=== PATIENT | male | born 1950 | race Asian ===

== ENCOUNTER 2022-10-30 02:11 | Inpatient (IN) | payer BC ==
[~2022-10-30] VITALS: Ht 175.3 cm; Wt 65.8 kg
--- NOTE | 2022-10-30 02:11 | NUR ---
[facility]. FROM [facility] PER REPORT FROM XRAY PT HAVE R FEMORAL FRACTURE. C/O L HIP PAIN S/P FALL + HT, -KO, NO BLOOD THINNER USE. PT A/OX2/3. TOLERATING R/A WELL WITH NO RESP DISTRESS. SAFETY MEASURES IN PLACE. CONNECTED PT TO POX AND MONITOR.
--- NOTE | 2022-10-30 02:35 | NUR ---
FUR DRY CLEANER AT PT'S BEDSIDE
--- NOTE | 2022-10-30 02:47 | NUR ---
RAC #18G S/L BLOOD AND COVID ANTIGEN SWAB COLLECTED AND SENT TO LAB
[2022-10-30 02:55] LABS: BASOPHILS % (AUTO) 0.2 % (0.0-2.0); EOSINOPHILS % (AUTO) 0.4 % (0.0-6.0); HEMATOCRIT 28 % (39-51); HEMOGLOBIN 9.2 g/dL (13.5-17.5); LYMPHOCYTES # (AUTO) 0.4 K/uL (0.8-4.8); LYMPHOCYTES % (AUTO) 5.7 % (20.0-44.0); MEAN CORPUSCULAR HGB CONC 33 g/dl (31.0-36.0); MEAN CORPUSCULAR VOLUME 101 fL (80-96); MONOCYTES # (AUTO) 0.6 K/uL (0.1-1.30); MONOCYTES % (AUTO) 8.2 % (2.0-12.0); NEUTROPHILS % (AUTO) 85.5 % (43.0-81.0); PLATELET COUNT (AUTO) 181 K/uL (150-450); RED BLOOD CELL COUNT(AUTO) 2.78 MIL/uL (4.5-6.0)
--- NOTE | 2022-10-30 02:55 | NUR ---
PT TAKEN TO CT VIA LEY[facility]
[2022-10-30 03:11] LABS: CALCIUM, SERUM 8.6 mg/dL (8.5-10.1); POTASSIUM 3.2 mmol/L (3.5-5.1)
[2022-10-30 05:09] LABS: BASOPHILS % (MANUAL) 0 % (0.0-2.0); EOSINOPHILS % (MANUAL) 0 % (0-4); LYMPHOCYTES % (MANUAL) 7 % (16-48); MONOCYTES % (MANUAL) 9 % (0-11.0); NEUTROPHILS % (MANUAL) 84 (42-76)
--- NOTE | 2022-10-30 05:29 | NUR ---
EPIC PANEL PAGED
--- NOTE | 2022-10-30 05:55 | NUR ---
DR CASTILLO ON PHONE CALL WITH ROGELIO GILLILAND SUPERINTENDENT [employer]
[2022-10-30] MEDS ORDERED: Z GUARD REMEDY 4 OZ OINT TP PRN (06:30)
[2022-10-30] MEDS ORDERED: ACETAMINOPHEN 325 MG TABLET PO PRN (06:30)
[2022-10-30] MEDS: POTASSIUM CL. PREMIX PERIPHER. 50 ML IV SCH ×6 (06:30→16:59)
[2022-10-30] MEDS ORDERED: IV D5/0.45 NACL 1,000 ML IV PRN (06:30)
[2022-10-30] MEDS ORDERED: ONDANSETRON HCL/PF 4 MG/2 ML VIAL IVP PRN (06:30)
--- NOTE | 2022-10-30 07:15 | NUR ---
RECEIVED PT FROM JUANITO RN PT AWAKE FALLOW DORIAND RESPIRATION SPONT AND EASY
--- NOTE | 2022-10-30 08:03 | NUR ---
WATING FOR MS BED
--- NOTE | 2022-10-30 08:24 | NUR ---
Hand off Ciera RN TO ROOM 311-2 VIA KERRI AWAKE FALLOW COMMAND
--- NOTE | 2022-10-30 09:15 | NUR ---
TO ROOM 311-2 VIA GARNY STABLE VS AWAKE AND FALLOW COMMAND
[2022-10-30] MEDS ORDERED: POLY17PO4 PO (09:50)
[2022-10-30] MEDS ORDERED: FLUD0.1T PO (09:50)
[2022-10-30] MEDS ORDERED: CYAN-51 PO (09:50)
[2022-10-30] MEDS ORDERED: PARO30TA4 PO (09:50)
[2022-10-30] MEDS ORDERED: PRUC2TAB PO (09:50)
[2022-10-30] MEDS ORDERED: MIDO2.5T PO (09:50)
[2022-10-30] MEDS ORDERED: SENN-261 PO (09:50)
[2022-10-30] MEDS ORDERED: FERR325T23 PO (09:50)
[2022-10-30] MEDS ORDERED: ACET-868 PO (09:50)
[2022-10-30] MEDS ORDERED: CHOL400C8 PO (09:50)
[2022-10-30] MEDS ORDERED: DOCU-141 PO (09:50)
[2022-10-30] MEDS ORDERED: CARB1TAB21 PO ×2 (09:50)
[2022-10-30] MEDS ORDERED: ENTA200T30 PO (09:50)
[2022-10-30] MEDS ORDERED: BRIN8DRO2 EACHEYE (09:50)
[2022-10-30] MEDS ORDERED: BIMA2.5D5 EACHEYE (09:50)
[2022-10-30] MEDS ORDERED: BUPR-54 PO (09:50)
[2022-10-30] MEDS ORDERED: ATOR10TA PO (09:50)
[2022-10-30] MEDS ORDERED: ACET-2605 PO (09:50)
[2022-10-30] MEDS ORDERED: CARB-132 PO (09:50)
--- NOTE | 2022-10-30 11:00 | NUR ---
ms rn received a new admission from er.71 year old male from facility, awake, oriented x2-3,s/p fall w/ fractured right hip,w/ dr. reyes, orders made and carried out,repositioned for comfort,denies pain at this time,will monitor patient.
[2022-10-30 11:56] VITALS: BP 123/66
--- NOTE | 2022-10-30 15:30 | NUR ---
ms rn due meds given, at bedside, updated w/ plan of care.
[2022-10-30 16:03] VITALS: BP 128/70
--- NOTE | 2022-10-30 16:45 | NUR ---
ms rn was seen by armand steven, examined patient, will call if family is willing for surgery.
--- NOTE | 2022-10-30 17:29 | NUR ---
ms rn on bed, no distress noted, patient is still confuse at times.
--- NOTE | 2022-10-30 19:47 | NUR ---
MS RN OPENING NOTE PATIENT SLEEPING IN BED, EASILY AWAKENED, PT ALERT/ORIENTED X 2, PERIODS OF CONFUSION PER DAYSHIFT RN. PATIENT STABLE ON RA, NO S/S OF DISTRESS OR SOB NOTED, BREATHING EVEN AND UNLABORED. IV ACCESS ON RAC #18G INTACT AND INFUSING D5 1/2 NS @ 75 ML/HR. PATIENT TO BE NPO POST MIDNIGHT FOR POSSIBLE SURGERY, AWAITING CLEARANCE AND SURGERY SCHEDULE. SAFETY MEASURES IN PLACE: CALL LIGHT WITHIN REACH, SIDE RAILS UP X 3, BED LOCKED IN LOWEST POSITION, HOB ELEVATED, BED ALARM ON. WILL CONTINUE TO MONITOR PATIENT Addendum: 10/30/22 at 1955 by SAMMY ROUSE RN PER DAYSHIFT RN, WILL BE HERE TOMORROW TO SIGN CONSENT FORMS
[2022-10-30 20:00] VITALS: BP 148/91
--- NOTE | 2022-10-30 20:35 | NUR ---
MS RN NOTE CALLED PATIENT'S HIEU Romeo (PHONE # [phone]) FOR CONSENT FOR RIGHT HIP ORIF WITH IM NAIL, ANESTHESIA AND BLOOD TRANSFUSION. HIEU ROMEO CONSENTED FOR SURGERY, ANESTHESIA AND BLOOD TRANSFUSION, VERIFIED BY RJ FRANCO. PATIENT TO HAVE SURGERY IN AM. CONSENTS PLACED IN CHART
[2022-10-31] MEDS: IV D5/0.45 NACL 1,000 ML IV PRN ×2 (05:17→18:28)
--- NOTE | 2022-10-31 06:19 | NUR ---
MS RN CLOSING NOTE PATIENT SLEEPING IN BED, PATIENT ALERT/ORIENTED X 1-2 WITH FORGETFULNESS AND CONFUSION. PATIENT STABLE ON RA, NO S/S OF DISTRESS OR SOB NOTED, BREATHING EVEN AND UNLABORED. IV ACCESS ON LAC #18G INTACT AND INFUSING D5 1/2 NS @ 75 ML/HR. PATIENT SLEPT WELL THROUGH THE NIGHT, APPEARED COMFORTABLE. PATIENT INCONTINENT WITH 2 BOWEL MOVEMENTS, PT HAD CONDOM CATH BUT KEPT REMOVING IT SO IT WASN'T REPLACED, URINE ORANGE IN COLOR. PATIENT KEPT NPO, HAVING RIGHT HIP ORIF WITH IM NAIL THIS AM. SAFETY MEASURES IN PLACE: CALL LIGHT WITHIN REACH, SIDE RAILS UP X 3, BED LOCKED IN LOWEST POSITION, HOB ELEVATED, BED ALARM ON. WILL ENDORSE TO DAYSHIFT RN FOR CONTINUITY OF CARE
[2022-10-31 06:33] LABS: BASOPHILS % (AUTO) 0.1 % (0.0-2.0); HEMATOCRIT 25 % (39-51); HEMOGLOBIN 8.1 g/dL (13.5-17.5); LYMPHOCYTES # (AUTO) 0.4 K/uL (0.8-4.8); LYMPHOCYTES % (AUTO) 5.1 % (20.0-44.0); MEAN CORPUSCULAR HGB CONC 32 g/dl (31.0-36.0); MEAN CORPUSCULAR VOLUME 101 fL (80-96); MONOCYTES # (AUTO) 0.8 K/uL (0.1-1.30); MONOCYTES % (AUTO) 10.7 % (2.0-12.0); NEUTROPHILS # (AUTO) 6.4 K/uL (1.8-8.9); NEUTROPHILS % (AUTO) 84.1 % (43.0-81.0); PLATELET COUNT (AUTO) 153 K/uL (150-450); RED BLOOD CELL COUNT(AUTO) 2.46 MIL/uL (4.5-6.0); WHITE BLOOD COUNT (AUTO) 7.6 K/uL (4.3-11.0)
[2022-10-31 06:43] LABS: CALCIUM, SERUM 8.4 mg/dL (8.5-10.1); CREATININE 0.7 mg/dL (0.6-1.3); MAGNESIUM 2.5 mg/dL (1.8-2.4); PHOSPHORUS 2.7 mg/dL (2.5-4.9); POTASSIUM 3.3 mmol/L (3.5-5.1)
--- NOTE | 2022-10-31 07:10 | NUR ---
ms rn received on bed, awake, confuse,not in any form of distress, on room air w/ adequate saturation, patient npo at this time, for surgery of right hip, will monitor patient.
[2022-10-31 08:00] VITALS: BP 141/74
[2022-10-31] MEDS: POTASSIUM CL. PREMIX PERIPHER. 50 ML IV SCH ×2 (09:24→15:07)
[2022-10-31] MEDS: MORPHINE SULFATE INJ 2 MG/ML DISP.SYRIN IV PRN ×2 (09:26→22:09)
--- NOTE | 2022-10-31 09:39 | NUR ---
ms rn went down for hip surgery,all needs attended.
[2022-10-31] MEDS ORDERED: BUPIVACAINE 0.25% 75 MG/30 ML VIAL ONE ×2 (10:14→10:31)
[2022-10-31] MEDS ORDERED: ALBUMIN 5% 250 ML IV ONE (10:30)
[2022-10-31] MEDS ORDERED: CALCIUM CHLORIDE 1,000 MG/10 ML DISP.SYRIN ONE (11:09)
[2022-10-31] MEDS ORDERED: TRANEXAMIC ACID 1,000 MG/10 ML VIAL ONE (11:11)
[2022-10-31] MEDS ORDERED: LIDOCAINE 1% INJ 50 ML MDV IJ ONE (12:12)
[2022-10-31] MEDS ORDERED: MEPERIDINE25 MG SYR 25 MG/ML VIAL ONE (12:47)
[2022-10-31 13:20] LABS: HEMOGLOBIN 8.6 g/dL (13.5-17.5)
[2022-10-31] MEDS ORDERED: ACETAMINOPHEN 325 MG TABLET PO PRN (14:00)
[2022-10-31] MEDS ORDERED: DOCUSATE SODIUM 100 MG CAPSULE PO PRN (14:00)
[2022-10-31] MEDS ORDERED: MORPHINE SULFATE INJ 4 MG/ML DISP.SYRIN IV PRN (14:00)
[2022-10-31] MEDS ORDERED: BISACODYL SUPP (10 MG) 10 MG/SUPP.RECT SUPP.RECT RC PRN (14:00)
[2022-10-31] MEDS ORDERED: HYDROCODONE/APAP 5/325MG TABLET PO PRN ×2 (14:00)
[2022-10-31] MEDS ORDERED: DOCUSATE SODIUM 250 MG CAPSULE PO PRN (14:00)
[2022-10-31] MEDS ORDERED: SENNOSIDES 8.6 MG TABLET PO PRN ×2 (14:00)
--- NOTE | 2022-10-31 15:00 | NUR ---
ms rn patient came back from surgery, awake, still confused,not in any form of distress, respirations even and unlabored,no sob noted w/ adequate saturation. surgical site w/ dressing dry and intact.repositioned for comfort.
[2022-10-31] MEDS: ENOXAPARIN SODIUM 40 MG/0.4 ML DISP.SYRIN SQ SCH (15:13)
[2022-10-31 16:00] VITALS: BP 130/100
--- NOTE | 2022-10-31 17:53 | NUR ---
ms rn on bed, no distress noted,all needs attended.
[2022-10-31] MEDS: ANCEF 1 GM/50 ML D5W IV SCH ×2 (18:28)
--- NOTE | 2022-10-31 19:25 | NUR ---
MS RN OPENING NOTE PATIENT IS SLEEPING IN BED, EASILY BEING AROUSED. HE IS CONFUSED, AO X 1 ONLY. PT IS ON RA, TOLERATED WELL. NO S/S OF DISTRESS OR SOB. PT HAS IV ACCESS AT HIS R HAND, #20G, RUNNING D5 1/2NS @ 75 ML/HR. IV SITE IS PATENT AND INTACT.PT HAD SURGERY TODAY, DRESSING IS D/I/C. NO COMPLAIN OF HAVING PAIN AT THIS MOMENT. SAFETY MEASURES ARE IN PLACED: BED IN LOWEST AND LOCKED POSITION; SIDE RAILS UP X 2; CALL LIGHT AND TABLE ARE WITHIN REACH; BED ALARM IS SET. WILL CONTINUE MONITORING THE PT AND PROVIDE THE CARE PT NEEDS.
[2022-10-31 20:00] VITALS: BP 107/53
--- NOTE | 2022-10-31 22:09 | NUR ---
MS RN NOTE CHANGING THE PT'S DIAPER WITH RESOURCE SPECIALIST. PT SHOWING FACIAL GRIMACING AND MOANING. PRN IV MEDICATION, MORPHINE 4 MG, GIVEN PER MD ORDER.
[2022-11-01] MEDS: ANCEF 1 GM/50 ML D5W IV SCH ×2 (02:01)
[2022-11-01 05:52] LABS: HEMOGLOBIN 7.7 g/dL (13.5-17.5)
[2022-11-01] MEDS: IV D5/0.45 NACL 1,000 ML IV PRN ×2 (06:03→18:20)
--- NOTE | 2022-11-01 06:40 | NUR ---
MS RN CLOSING NOTE PATIENT IS SLEEPING IN BED, EASILY BEING AROUSED. HE IS ALERT AND ORIENTED, AO X 2. PT DID NOT REMEMBER THAT HE HAD VISITOR, HIS BROTHER, LAST NIGHT. HE DID NOT KNOW HE WAS PULLING THE IV OUT OF HIM. HE DID NOT REMEMBER HIS RIGHT HAND CAUSED HIS LEFT FA SKIN TEAR. HE IS MORE ALERT THAN YESTERDAY. EXPLAINED THE REASON OF PUTTING THE SOFT WRISTS RESTRAIN ON HIM, PT VERBALIZED UNDERSTANDING. PT IS ON RA, TOLERATED WELL. NO S/S OF DISTRESS OR SOB. PT HAS IV ACCESS AT HIS R HAND, #20G, RUNNING D5 1/2NS @ 75 ML/HR. IV SITE IS PATENT AND INTACT. PT DENIES OF HAVING PAIN AT THIS MOMENT. SAFETY MEASURES ARE IN PLACED: BED IN LOWEST AND LOCKED POSITION; SIDE RAILS UP X 2; CALL LIGHT AND TABLE ARE WITHIN REACH; BED ALARM IS SET. WILL ENDORSE NEXT SHIFT NURSE FOR CONTINUING PT CARE.
--- NOTE | 2022-11-01 07:29 | NUR ---
MS RN OPENING NOTE RECEIVED PT AWAKE AND RESTING IN BED. PT IS A/O X1, CONFUSED AND FORGETFUL. REORIENTED PT NEEDED. PT ON ROOM AIR, TOLERATING WELL. NO SOB NOTED. NOT IN ANY SIGN OF RESPIRATORY DISTRESS. IV ACCESS ON RIGHT HAND G#22 INTACT AND PATENT WITH D5 1/2 NS INFUSING AT 75ML/HR. SAFETY MEASURES IN PLACE: BED IN LOWEST AND LOCKED POSITION, SIDE RAILS UPX2, BED ALARM ON, AND CALL LIGHT WITHIN REACH. WILL CONTINUE PT WITH PLAN OF CARE.
[2022-11-01 08:00] VITALS: BP 144/78
[2022-11-01] MEDS ORDERED: POTASSIUM CHLORIDE 20 MEQ TAB.PRT.SR PO ONE (09:00)
[2022-11-01] MEDS ORDERED: DOCUSATE SODIUM 100 MG CAPSULE PO PRN (09:30)
[2022-11-01] MEDS ORDERED: MIDODRINE HCL (5MG) 5 MG TABLET PO PRN (09:30)
[2022-11-01] MEDS: CARBIDOPA/LEVODOPA 25/100 MG 1 UDTAB PO SCH ×3 (12:20→21:41)
[2022-11-01] MEDS: ENTACAPONE 200 MG TABLET PO SCH ×3 (12:20→21:41)
[2022-11-01] MEDS ORDERED: ENTACAPONE PO SCH (13:00)
[2022-11-01] MEDS ORDERED: CARBIDOPA PO SCH (13:00)
[2022-11-01] MEDS ORDERED: [UNRECOGNIZED DRUG - OTHER] PO SCH (13:00)
[2022-11-01] MEDS ORDERED: LEVODOPA PO SCH (13:00)
[2022-11-01] MEDS: ENOXAPARIN SODIUM 40 MG/0.4 ML DISP.SYRIN SQ SCH (13:07)
[2022-11-01 16:05] VITALS: BP 147/85
[2022-11-01] MEDS: FLUDROCORTISONE 0.1 MG TABLET PO SCH (17:17)
[2022-11-01] MEDS: SENNOSIDES 8.6 MG TABLET PO SCH (17:17)
[2022-11-01] MEDS: POLYETHYLENE GLYCOL 3350 17 GM POWD.PACK PO SCH (17:17)
--- NOTE | 2022-11-01 18:40 | NUR ---
MS RN CLOSING NOTE PT AWAKE AND RESTING IN BED. PT IS A/O X1, CONFUSED AND FORGETFUL. REORIENTED PT NEEDED. PT ON ROOM AIR, TOLERATING WELL. NO SOB NOTED. NOT IN ANY SIGN OF RESPIRATORY DISTRESS. IV ACCESS ON RIGHT HAND G#22 INTACT AND PATENT WITH D5 1/2 NS INFUSING AT 75ML/HR. ALL NEEDS ATTENDED. KEPT CLEAN AND COMFORTABLE AT ALL TIMES. TURNED AND REPOSITIONED Q2HRS AND NEEDED. SAFETY MEASURES IN PLACE: BED IN LOWEST AND LOCKED POSITION, SIDE RAILS UPX2, BED ALARM ON, AND CALL LIGHT WITHIN REACH. WILL ENDORSE TO NURSE LICENSED PRACTICAL NURSE FOR ROMA.
--- NOTE | 2022-11-01 19:00 | NUR ---
MS RN OPENING NOTE PATIENT IS SITTING IN BED, WITH HIS AND HIS BROTHER AT THE BEDSIDE. HE IS CONFUSED, AO X 1 ONLY. PT THOUGHT HE IS ON THE AIRPLANE. ACCORDING TO HIS , THIS IS HIS BASELINE. PT IS ON RA, TOLERATED WELL. NO S/S OF DISTRESS OR SOB. PT HAS IV ACCESS AT HIS R HAND, #22G, RUNNING D5 1/2NS @ 75 ML/HR. IV SITE IS PATENT AND INTACT. PT IS ON SOFT WRISTS RESTRAINT BILATERAL, EXPLAINED AND EDUCATED THE PT AND HIS FAMILY MEMBERS RELATED TO THE RESTRAINT. PT DOES NOT COMPLAIN OF HAVING PAIN AT THIS MOMENT. SAFETY MEASURES ARE IN PLACED: BED IN LOWEST AND LOCKED POSITION; SIDE RAILS UP X 2; CALL LIGHT AND TABLE ARE WITHIN REACH; BED ALARM IS SET. WILL CONTINUE MONITORING THE PT AND PROVIDE THE CARE PT NEEDS.
--- NOTE | 2022-11-01 19:13 | NUR ---
MS RN CLOSING NOTE PT AWAKE AND RESTING IN BED. PT IS A/O X1, CONFUSED AND FORGETFUL. REORIENTED PT NEEDED. PT ON ROOM AIR, TOLERATING WELL. NO SOB NOTED. NOT IN ANY SIGN OF RESPIRATORY DISTRESS. IV ACCESS ON RIGHT HAND G#22 INTACT AND PATENT WITH D5 1/2 NS INFUSING AT 75ML/HR. ALL NEEDS ATTENDED. KEPT CLEAN AND COMFORTABLE AT ALL TIMES. TURNED AND REPOSITIONED Q2HRS AND NEEDED. SAFETY MEASURES IN PLACE: BED IN LOWEST AND LOCKED POSITION, SIDE RAILS UPX2, BED ALARM ON, AND CALL LIGHT WITHIN REACH. WILL ENDORSE TO SECURITIES SALES ASSOCIATE NURSE FOR ROMA.
[2022-11-01 20:00] VITALS: BP 132/82
[2022-11-01] MEDS: LATANOPROST EYE DROP 0.005% 2.5 ML BOTTLE OP SCH (21:41)
[2022-11-02] MEDS: IV D5/0.45 NACL 1,000 ML IV PRN ×2 (04:30→19:18)
--- NOTE | 2022-11-02 06:55 | NUR ---
MS RN CLOSING NOTE PATIENT IS SLEEPING IN BED, EASILY BEING AROUSED. HE IS ALERT AND ORIENTED, AO X 2. PT IS ON RA, TOLERATED WELL. NO S/S OF DISTRESS OR SOB. PT HAS IV ACCESS AT HIS R HAND, #22G, RUNNING D5 1/2NS @ 75 ML/HR. IV SITE IS PATENT AND INTACT. PT DENIES OF HAVING PAIN AT THIS MOMENT. SAFETY MEASURES ARE IN PLACED: BED IN LOWEST AND LOCKED POSITION; SIDE RAILS UP X 2; CALL LIGHT AND TABLE ARE WITHIN REACH; BED ALARM IS SET. WILL ENDORSE NEXT SHIFT NURSE FOR CONTINUING PT CARE.
--- NOTE | 2022-11-02 08:04 | NUR ---
MS RJ OPENING NOTE Patient in bed, awake. A/O x 1, confused at times. On room air, no SOB or s/s of distress noted. IV access on Right hand #22 infusing D5 1/2 NS @ 75 ml/hr. Bilateral soft wrist restraints noted. Surgical dressing on Left hip c/d/i. Safety precautions in place: bed in low, locked position; siderails up x 2; call light within reach. Will continue to monitor. Addendum: 11/03/22 at 0820 by ANJU LOWE RN CORRECTION: Surgical dressing on Right hip
[2022-11-02 08:32] VITALS: BP 141/76
[2022-11-02 08:37] LABS: BASOPHILS % (AUTO) 0.1 % (0.0-2.0); EOSINOPHILS % (AUTO) 0.1 % (0.0-6.0); HEMATOCRIT 22 % (39-51); HEMOGLOBIN 7.3 g/dL (13.5-17.5); LYMPHOCYTES # (AUTO) 0.2 K/uL (0.8-4.8); MEAN CORPUSCULAR HGB CONC 33 g/dl (31.0-36.0); MEAN CORPUSCULAR VOLUME 99 fL (80-96); MONOCYTES # (AUTO) 0.5 K/uL (0.1-1.30); MONOCYTES % (AUTO) 7.5 % (2.0-12.0); NEUTROPHILS # (AUTO) 5.6 K/uL (1.8-8.9); NEUTROPHILS % (AUTO) 89.3 % (43.0-81.0); PLATELET COUNT (AUTO) 117 K/uL (150-450); RED BLOOD CELL COUNT(AUTO) 2.24 MIL/uL (4.5-6.0); WHITE BLOOD COUNT (AUTO) 6.2 K/uL (4.3-11.0)
[2022-11-02 08:56] LABS: CREATININE 0.6 mg/dL (0.6-1.3); POTASSIUM 3.5 mmol/L (3.5-5.1)
[2022-11-02] MEDS ORDERED: Medication Not On Formulary EA (Prucalopride Succinate (Motegrity) 2 MG) PO SCH (09:00)
[2022-11-02] MEDS: ENTACAPONE 200 MG TABLET PO SCH ×4 (09:14→21:03)
[2022-11-02] MEDS: POLYETHYLENE GLYCOL 3350 17 GM POWD.PACK PO SCH ×2 (09:14→17:06)
[2022-11-02] MEDS: ATORVASTATIN 10 MG TABLET PO SCH (09:14)
[2022-11-02] MEDS: FERROUS SULFATE (325 MG) 325 MG/TAB TABLET PO SCH (09:14)
[2022-11-02] MEDS: CARBIDOPA/LEVODOPA 25/100 MG 1 UDTAB PO SCH ×4 (09:14→21:03)
[2022-11-02] MEDS: PAROXETINE HCL 10 MG TABLET PO SCH (09:15)
[2022-11-02] MEDS: SENNOSIDES 8.6 MG TABLET PO SCH ×2 (09:15→17:06)
[2022-11-02] MEDS: FLUDROCORTISONE 0.1 MG TABLET PO SCH ×2 (09:16→17:05)
--- NOTE | 2022-11-02 09:58 | NUR ---
WOUND CARE CONSULT: PT PRESENTS WITH MULTIPLE AREAS OF SKIN DISCOLORATION INCLUDING FACE, BOTH HIPS AND RT INNER THIGH, SURGICAL DRESSINGS (DRY AND INTACT) TO RT HIP/THIGH AREAS. STERI STRIP FELL OF OF LEFT FACE REVEALING DRY ABRASION. SACRAL AREA IS BONY. RECOMMENDATIONS MADE FOR SKIN PROTECTION. DISCUSSED WITH NURSING STAFF. MD IN AGREEMENT WITH PLAN OF CARE.
--- NOTE | 2022-11-02 10:00 | NUR ---
RN NOTE Condom catheter attached.
[2022-11-02] MEDS: ENOXAPARIN SODIUM 40 MG/0.4 ML DISP.SYRIN SQ SCH (14:00)
--- NOTE | 2022-11-02 14:06 | NUR ---
RN NOTE Lovenox scheduled for 1400 held, Hgb is trending down, 7.3 today.
[2022-11-02] MEDS ORDERED: ENOX40DI SQ (14:48)
[2022-11-02 16:10] VITALS: BP 147/88
--- NOTE | 2022-11-02 18:59 | NUR ---
MS RN CLOSING NOTE Patient in bed, resting. A/O x 1-2, confused at times. Stable on room air, no SOB or s/s of distress noted. IV access on Right hand #22 infusing D5 1/2 NS @ 75 ml/hr. Bilateral soft wrist restraints noted. Surgical dressing on Left hip changed per MD order. All needs attended to. Due meds given. Turned and repositioned q2h as tolerated. Safety precautions in place: bed in low, locked position; siderails up x 2; call light within reach. Will endorse to machinist 2nd shift nurse for ROMA.
--- NOTE | 2022-11-02 19:33 | NUR ---
MS RN OPENING NOTE RECEIVED PT AWAKE IN BED. A/O X1 AND CONFUSED. PT STABLE ON ROOM AIR. NO SOB OR S/S OF RESPIRATORY DISTRESS. BREATHING EVEN AND UNLABORED. WITH BILATERAL SOFT WRIST RESTRAINTS, CIRCULATION CHECKED AND WNL. R HIP DRESSING C/D/I. IV ACCESS R HAND 22G, INTACT AND PATENT, RUNNING D5 1/2 NS @ 75 ML/HR. SAFETY PRECAUTIONS IN PLACE. BED IN LOWEST LOCKED POSITION, HOB ELEVATED, SIDE RAILS UP X3, AND CALL LIGHT AND TABLE WITHIN REACH. ALL NEEDS MET AT THIS TIME.
[2022-11-02 20:00] VITALS: BP 148/88
[2022-11-02] MEDS: LATANOPROST EYE DROP 0.005% 2.5 ML BOTTLE OP SCH (21:03)
--- NOTE | 2022-11-03 04:36 | NUR ---
RN NOTE IV ACCESS DISLODGED FROM R HAND. ATTEMPTED MULTIPLE PIV INSERTION WITH NO SUCCESS. PT REQUESTED THAT WE STOP FOR NOW. CHARGE NURSE EDYTA WALDROP.
--- NOTE | 2022-11-03 06:44 | NUR ---
MS RN CLOSING NOTE PT AWAKE IN BED. A/O X1 AND CONFUSED. PT STABLE ON ROOM AIR. NO SOB OR S/S OF RESPIRATORY DISTRESS. BREATHING EVEN AND UNLABORED. WITH BILATERAL SOFT WRIST RESTRAINTS, CIRCULATION CHECKED AND WNL. R HIP DRESSING C/D/I. NO IV ACCESS AT THIS TIME. SAFETY PRECAUTIONS IN PLACE AT ALL TIMES. BED IN LOWEST LOCKED POSITION, HOB ELEVATED, SIDE RAILS UP X3, AND CALL LIGHT AND TABLE WITHIN REACH. ALL NEEDS MET AT THIS TIME AND WILL ENDORSE TO ONCOMING NURSE FOR ROMA.
[2022-11-03 07:00] VITALS: BP 149/86
[2022-11-03 07:52] LABS: BASOPHILS % (AUTO) 0.1 % (0.0-2.0); EOSINOPHILS % (AUTO) 0.1 % (0.0-6.0); HEMATOCRIT 23 % (39-51); HEMOGLOBIN 7.7 g/dL (13.5-17.5); LYMPHOCYTES # (AUTO) 0.2 K/uL (0.8-4.8); LYMPHOCYTES % (AUTO) 3.9 % (20.0-44.0); MEAN CORPUSCULAR HGB CONC 34 g/dl (31.0-36.0); MEAN CORPUSCULAR VOLUME 97 fL (80-96); MONOCYTES # (AUTO) 0.4 K/uL (0.1-1.30); MONOCYTES % (AUTO) 7.9 % (2.0-12.0); NEUTROPHILS # (AUTO) 4.6 K/uL (1.8-8.9); PLATELET COUNT (AUTO) 144 K/uL (150-450); RED BLOOD CELL COUNT(AUTO) 2.37 MIL/uL (4.5-6.0); WHITE BLOOD COUNT (AUTO) 5.2 K/uL (4.3-11.0)
[2022-11-03 08:10] LABS: CALCIUM, SERUM 8.2 mg/dL (8.5-10.1); CREATININE 0.5 mg/dL (0.6-1.3); POTASSIUM 3.8 mmol/L (3.5-5.1)
--- NOTE | 2022-11-03 08:18 | NUR ---
MS RN OPENING NOTE Patient in bed, awake. A/O x 1, confused. On room air, no SOB or s/s of distress noted. No IV access at this time, per night stocker patient puled out IV. Bilateral soft wrist restraints noted. Surgical dressing on Left hip c/d/i. Condom catheter in place draining to an orange colored urine. Safety precautions in place: bed in low, locked position; siderails up x 2; call light within reach. Will continue to monitor. Addendum: 11/03/22 at 0820 by ANJU LOWE RN CORRECTION: Surgical dressing on Right hip
[2022-11-03] MEDS: POLYETHYLENE GLYCOL 3350 17 GM POWD.PACK PO SCH ×2 (09:02→16:36)
[2022-11-03] MEDS: PAROXETINE HCL 10 MG TABLET PO SCH (09:02)
[2022-11-03] MEDS: CARBIDOPA/LEVODOPA 25/100 MG 1 UDTAB PO SCH ×3 (09:02→16:42)
[2022-11-03] MEDS: ENTACAPONE 200 MG TABLET PO SCH ×3 (09:02→16:42)
[2022-11-03] MEDS: SENNOSIDES 8.6 MG TABLET PO SCH ×2 (09:03→16:36)
[2022-11-03] MEDS: ATORVASTATIN 10 MG TABLET PO SCH (09:03)
[2022-11-03] MEDS: FERROUS SULFATE (325 MG) 325 MG/TAB TABLET PO SCH (09:03)
[2022-11-03] MEDS: FLUDROCORTISONE 0.1 MG TABLET PO SCH ×2 (09:03→16:42)
[2022-11-03] MEDS: ENOXAPARIN SODIUM 40 MG/0.4 ML DISP.SYRIN SQ SCH (14:07)
[2022-11-03 16:00] VITALS: BP 152/92
--- NOTE | 2022-11-03 19:38 | NUR ---
DISCHARGE NOTE Received order for discharge. Patient is A/O x 1= Addendum: 11/03/22 at 1940 by ANJU LOWE RN DISCHARGE NOTE Received order for discharge. Patient is A/O x 1-2, confused. Stable on room air, no SOB or s/s of distress noted. Report given to RJ Herman of [facility]. All belongings accounted for. Photos not taken, patient started getting agitated. Exitcare folder given to EMT. Patient left in stable condition via ambulance with 2 minister assistant present.
== END 2022-11-03 18:43 | DRG 480 ==
LOC: ER 02:13 → MED 08:25
PROVIDERS: ADMIT Internal Medicine; ATTEND Internal Medicine
PROC: 0QS606Z Reposition Right Upper Femur with Intramedullary Internal Fixation Device, Open Approach (ICD-10-PCS; principal; 2022-10-31)
PROC: 30233N1 Transfusion of Nonautologous Red Blood Cells into Peripheral Vein, Percutaneous Approach (ICD-10-PCS; 2022-10-31)
DX: S72.141A Displaced intertrochanteric fracture of right femur, initial encounter for closed fracture (principal); G93.41 Metabolic encephalopathy; N17.0 Acute kidney failure with tubular necrosis; D69.6 Thrombocytopenia, unspecified; Z20.822 Contact with and (suspected) exposure to COVID-19; G20 Parkinson's disease; Z66 Do not resuscitate; W05.0XXA Fall from non-moving wheelchair, initial encounter; Z51.5 Encounter for palliative care; Y92.129 Unspecified place in nursing home as the place of occurrence of the external cause; N40.0 Benign prostatic hyperplasia without lower urinary tract symptoms; D64.9 Anemia, unspecified; E78.5 Hyperlipidemia, unspecified; E87.6 Hypokalemia; I10 Essential (primary) hypertension; H40.059 Ocular hypertension, unspecified eye; Z88.1 Allergy status to other antibiotic agents; Z99.3 Dependence on wheelchair
CPT/HCPCS: 36415; 70450-TC; 71045-TC; 72125-TC; 73501; 73502; 73552; 80048-TC; 83735-TC; 84100-TC; 85025-TC; 85027-TC; 85730-TC; 86850-TC; 87081-TC; 93307-TC; 97112-TC; 97116-TC; 97530-TC; A4223; A4349; A6209; A6403; C1713; C9803; G0378; J0171; J0690; J1100; J1650; J2175; J2270; J2370; J2405; J2704; J2765; J3480; J3490; J7030; J7050; J7060; P9016; P9045